=== PATIENT | female | born 1960 | race Caucasian/White ===

== ENCOUNTER → 2017-10-05 | Outpatient (CLI) | payer OTHER ==
--- NOTE | 2017-10-06 17:09 | MG ---
HISTORY: SCREENING Comparison: April 19, 2013 and July 28, 2016 FINDINGS: Bilateral CC and MLO projections of the right and left breast were obtained. Scattered fibroglandula r tissue is seen to be present without significant interval change. No suspicious architectural dist ortion, mass or clustered microcalcifications can be observed to suggest malignancy. No skin thicken ing or nipple retraction is appreciated. No pathological lymphadenopathy can be identified. Benign- appearing calcifications are noted within the right and left breast. IMPRESSION: NO RADIOGRAPHIC EVIDENCE OF MALIGNANCY. ACR CATEGORY 2 - benign findings. FOLLOW-UP EXAM 1 YEAR. Diagnostic CAD was utilized and reviewed. * 0 (ZERO) - ASSESSMENT INCOMPLETE; ADDITIONAL IMAGING IS NEEDED. * 1/1 (ONE) - NEGATIVE. * 2/II (TWO) - BENIGN FINDINGS. * 3/III (THREE) - PROBABLY BENIGN FINDING; SHORT INTERVAL FOLLOW-UP SUGGESTED. * 4/IV (FOUR) - SUSPICIOUS ABNORMALITY; BIOPSY SHOULD BE CONSIDERED. * 5/V - HIGHLY SUSPICIOUS OF MALIGNANCY; BIOPSY SHOULD BE PERFORMED. A NEGATIVE X-RAY REPORT SHOULD NOT DELAY BIOPSY IF A DOMINANT OR CLINICALLY SUSPICIOUS MASS IS PRESENT; 4 TO 8 PERCENT OF CANCERS ARE NOT IDENTIFIED BY X-RAY. A NEGA TIVE REPORT MAY REINFORCE THE CLINICAL IMPRESSION. ADENOSIS AND DENSE BREASTS MAY OBSCURE AN UNDERLY ING NEOPLASM. Reported By:
== END ==
LOC: RAD 13:40
PROVIDERS: ATTEND Internal Medicine
DX: Z12.31 Encounter for screening mammogram for malignant neoplasm of breast (principal)
CPT/HCPCS: 77067

== ENCOUNTER 2017-10-28 11:16 | Emergency (ER) | payer SELFPAY ==
[2017-10-28 11:22] VITALS: BP 133/84; BMI 24.3
[2017-10-28 12:14] LABS: BILIRUBIN,URINE NEGATIVE (NEGATIVE); BLOOD/HEMOGLOBIN,URINE 2+ (NEGATIVE); GLUCOSE, URINE NEGATIVE (NEGATIVE); KETONES,URINE 1+ (NEGATIVE); LEUKOCYTE ESTERASE ,URINE 2+ (NEGATIVE); NITRITES,URINE NEGATIVE (NEGATIVE); PROTEIN,URINE 1+ (NEGATIVE); UROBILINOGEN,URINE 1+ (NORMAL)
[2017-10-28 12:19] LABS: APPEARANCE,URINE CLOUDY (CLEAR); COLOR,URINE YELLOW (YELLOW)
[2017-10-28 12:23] LABS: RBC,URINE 0 - 2 /HPF (NONE SEEN)
[2017-10-28 12:24] LABS: AMORPHOUS SEDIMENT,UR 1+ /HPF (NEGATIVE); BACTERIA,URINE 1+ /HPF (NEGATIVE); HYALINE CASTS, URINE RARE /LPF (NEGATIVE); MUCUS,URINE MODERATE /HPF (NEGATIVE); SQUAMOUS EPITHELIAL CELL,UR NUMEROUS /HPF (NEGATIVE)
[2017-10-28] MEDS ORDERED: TORADOL 60 MG VIAL IM ONE (13:00)
--- NOTE | 2017-10-28 13:02 | DR.FBACK ---
HPI - Time Seen Time seen: 11:50 - PCP Primary Care Physician: GRIFFIN TURPIN - Complaint Chief Complaint:: PT. C/O LOWER BACK PAIN AND LOWER ABDOMINAL PAIN THAT BEGAN ON TUESDAY. PT. STATES SHE HAS BEEN UNABLE TO GET OUT OF THE BED DUE TO THE PAIN. PT. DENIES INJURY. 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, Hysterectomy, Ortho Surgery, Other Past Surgical History Comment: CYST REMOVAL FROM NOSE, TUBAL LIGATION, BUNIONECTOMY - Family History History of Family Medical Conditions: Yes Family Medical History: Cancer - Social History Does patient currently use any type of tobacco product: Yes Have you used tobacco products in the last 12 months: Yes Type of Tobacco Use: Cigarettes Does any household member use tobacco: No Alcohol Use: None Do you use any recreational Drugs:: No Lives With: Family Lives Where: Home - infectious screening In the last 2 months have you had wt loss of >10#?: NO Have you had fever, night sweats or hemotysis?: No Have you traveled outside the country in the last 6 months?: No Isolation: Standard ROS - Review of Systems Constitutional: No Symptoms Reported Eyes: No Symptoms Reported ENTM: No Symptoms Reported Respiratoy: No Symptoms Reported Cardiovascular: No Symptoms Reported Gastrointestinal/Abdominal: Abdominal Pain (suprapubic) Genitourinary: Frequency, Other (urgency) Neurological: No Symptoms Reported Musculoskeletal: Back Pain Integumentary: No Symptoms Reported Hematologic/Lymphatic: No Symptoms Reported Endocrine: No Symptoms Reported Psychiatric: No Symptoms Reported PE - Vitals Vital Signs: Temp Pulse Resp BP Pulse Ox 10/28/17 11:17 99.2 F 112 H 20 133/84 98 - General Limitations: No Limitations General Appearance: Alert, In No Apparent Distress - Head Head Exam: Normal Inspection - Eyes Eye exam: Normal Appearance - ENT ENT Exam: Normal Exam - Chest Chest Inspection: Normal Inspection - Respiratory Respiratory Exam: Normal Lung Sounds Bilat - Cardiovascular Cardiovascular Exam: Regular Rate, Normal Rhythm, +S1, +S2 - Abdominal Exam Abdominal Exam: Normal Inspection, Normal Bowel Sounds, Soft - Genitourinary External Exam: Female: Deferred - Extremities Extremities Exam: Normal Inspection - Back Back Exam: Tenderness (lower lumbar vertebrae) ROR - Labs Reviewed Laboratory: Specimen Type Clean catch urine 10/28/17 11:39 Urine Color Yellow (YELLOW) 10/28/17 11:39 Urine Appearance Cloudy (CLEAR) 10/28/17 11:39 Urine pH 5.0 (5.0 - 8.0) 10/28/17 11:39 Ur Specific [place] 1.015 (1.000-1.030) 10/28/17 11:39 Urine Protein 1+ (NEGATIVE) 10/28/17 11:39 Urine Glucose (UA) Negative (NEGATIVE) 10/28/17 11:39 Urine Ketones 1+ (NEGATIVE) 10/28/17 11:39 Urine Occult Blood 2+ (NEGATIVE) 10/28/17 11:39 Urine Nitrite Negative (NEGATIVE) 10/28/17 11:39 Urine Bilirubin Negative (NEGATIVE) 10/28/17 11:39 Urine Urobilinogen 1+ (NORMAL) 10/28/17 11:39 Ur Leukocyte Esterase 2+ (NEGATIVE) 10/28/17 11:39 Urine RBC 0 - 2 /HPF (NONE SEEN) 10/28/17 11:39 Urine WBC 0 - 4 /HPF (NONE SEEN) 10/28/17 11:39 Ur Squamous Epith Cells Numerous /HPF (NEGATIVE) 10/28/17 11:39 Amorphous Sediment 1+ /HPF (NEGATIVE) 10/28/17 11:39 Urine Bacteria 1+ /HPF (NEGATIVE) 10/28/17 11:39 Hyaline Casts Rare /LPF (NEGATIVE) 10/28/17 11:39 Urine Mucus Moderate /HPF (NEGATIVE) 10/28/17 11:39 Ur Culture Indicated? No/not indicated 10/28/17 11:39 - XRAY XRAY Interpreted by: Radiologist (Pelvis x-ray: normal; L/S spine: DDD at L5-S1. ) - Diagnosis Discharge Problem: Low back pain, Degenerative lumbar disc - Discharge Plan Disposition: 01 HOME, SELF-CARE Condition: Stable - Follow ups/Referrals Follow ups/Referrals: SO ALVES [Primary Care Provider] - 3 days - Instructions
--- NOTE | 2017-10-28 13:04 | RAD ---
Examination: AP pelvis History: Back pain no injury Findings: There is no evidence for fracture, bone destruction, abnormal soft tissue calcification or pelvic mass. The hips are symmetric. The sacroiliac joints are intact. Impression: No significant abnormality demonstrated. Reported By:
--- NOTE | 2017-10-28 13:13 | RAD ---
Exam: Lumbar spine AP and lateral views History: 57-year-old female with lower back pain. No reported history of injury. Comparison: None. Findings: Five [id number] lumbar type vertebral bodies are seen. Vertebral body alignment is anatomic. The re is moderate narrowing at the L5-S1 disc space. The other lumbar disc spaces are maintained however . No acute bony abnormality is seen on this exam. Incidental note is made of aorto iliac vascular flores cification. IMPRESSION: Degenerative disc disease at the L5-S1 level Reported By:
[2017-10-28] MEDS ORDERED: TORADOL 60 MG VIAL ONE (13:20)
== END 2017-10-28 13:45 | disposition home or self-care (01) ==
LOC: ER 11:29
DX: M51.36 Other intervertebral disc degeneration, lumbar region (principal); M54.5 Low back pain
CPT/HCPCS: 72100; 72170; 81001; 96372; 99282; 99283; J1885